=== PATIENT | male | born 1940 | race Caucasian/White ===

== ENCOUNTER 2019-11-04 14:04 | Inpatient (IN) | payer OTHER ==
--- NOTE | 2019-11-04 14:16 | PDOC ---
Rapid Medical Evaluation Time Seen by Provider: 11/04/19 14:13 Medical Evaluation: Allergies Allergy/AdvReac Type Severity Reaction Status Date / Time No Known Allergies Allergy Verified 08/27/14 01:11 11/04/19 14:14 I have performed a brief in-person evaluation of this patient. The patient presents with a chief complaint of: Fatigue w/ poor appetite, weakness w/ sob. No CP, cough, fever. H/o CABG x 4, hip repair, HTN, HLD. No known covid. Currently on valtrex and zovirax for facial shingles and states m eds make him tired PMD: Jose Araujo, referred pt to ER Pertinent physical exam findings:well jose roberto, tachy to 110 and pulse ox 93% I have ordered the following:ekg/cxr.labs The patient will proceed to the ED for further evaluation. Discharge Disposition - Diagnosis Fatigue Qualifiers: Fatigue type: unspecified Qualified Code(s): R53.83 - Other fatigue - Referrals - Patient Instructions - Post Discharge Activity
--- NOTE | 2019-11-04 15:06 | PDOC ---
Documentation entered by Brinda Salomon SCRIBE, acting as scribe for Doris Hall MD. Doris Hall MD: This documentation has been prepared by the Aime lorenzana Nirvannie, SCRIBE, under my direction and personally reviewed by me in its entirety. I confirm that the documentation accurately reflects all work, treatment, procedures, and medical decision making performed by me. Attending Attestation - Resident Resident Name: Venice Heller - ED Attending Attestation I have performed the following: I have examined & evaluated the patient, The case was reviewed & discussed with the resident, I agree w/resident's findings & plan, Exceptions are as noted - HPI HPI: 11/04/19 14:59 79YOM with h/o HTN, HLD, DM, BPH, hip replacement in 05/2019, who p/w hypotension and hypoxia and b/l lung crackles noted in his oupatient clinic today while Dr. Eduardo was seeing him in f/u for his PCP Jose Araujo, with sxs of fatigue and SOB. He was recently diagnosed with right V1 distribution shingles and has been taking Valtrex. He denies any leg swelling, f/c/n/v/d/c, n/t/w focally. - Physicial Exam PE: 11/04/19 15:36 GENERAL: pleasant elderly male accompanied by family member, well-appearing, A/Ox4, no distress, answers questions appropriately HEENT: PERRLA, EOMI, moist mucous membranes NECK/BACK: no midline ttp, no spinal step-off or deformity, no hematoma, full ROM, neck supple CARDIOVASCULAR: regular rate/rhythm, no MGR, strong peripheral pulses, capillary refill <2 seconds, extremities wwp, no edema LUNGS/RESPIRATORY: no respiratory distress, not on supplemental O2 at the time of my exam, mild bibasilar crackles GI/ABDOMEN: symmetric [id number], normoactive BS, soft, no ttp, no midline pulsatile masses : no CVA tenderness MSK/EXTREMITIES: no muscle atrophy, no acute deformity SKIN: warm and dry, no pallor, no jaundice, no rash, no pathologic-appearing bruising, no skin breakdown, no cuts, no lesions NEUROLOGICAL: GCS 15, CN II-XII grossly intact, 5/5 strength proximally and distally, no facial droop - Medical Decision Making 11/04/19 15:37 79YOM fatigue, and hypoxia and hypotension. Initial Vital Signs Temp Pulse Resp BP Pulse Ox 97.6 F 110 H 18 102/65 93 L 11/04/19 14:16 11/04/19 14:16 11/04/19 14:16 11/04/19 14:16 11/04/19 14:16 DDX IBNLT: likely COVID-19. Superimposed bacterial PNA considered as well. Possible COPD/asthma/CHF exacerbation. Less likely influenza, bronchitis, other viral URI, laryngitis, tracheitis, etc. Unlikely but possible contribution from shingles but the rash does seem to be resolving well. There is concern for possibility of PE given the patient's persistent hypoxia. W/U ordered: Labs as noted below, COVID-19 swab, EKG, CXR, Chest CT PE protocol I have spoken with Dr. Eduardo who instructed the patient to come to the ED and will be admitting under her service for the patient's PCP Dr. Jose Araujo. Decision to Admit order has been placed. EKG: Reviewed; results as noted in ECG Review section. RAD/CHEST X-RAY PORTABLE* Chest: Shortness of breath. Single view of the chest has been submitted. There is a prominent mediastinum with sternal sutures and clips and some central congestive changes. A discrete infiltrate is not seen. The angles are sharp. Soft tissues are intact. There are degenerative spine and shoulder changes. Correlation recommended. Laboratory Tests 11/04/19 11/04/19 14:30 14:30 WBC 9.6 RBC 5.68 H Hgb 16.6 Hct 50.1 H D MCV 88.3 MCH 29.2 MCHC 33.1 RDW 15.3 Plt Count 185 MPV 8.1 Absolute Neuts (auto) 6.7 Neutrophils % 69.4 D Lymphocytes % 12.9 D Monocytes % 16.2 H Eosinophils % 1.0 D Basophils % 0.5 Nucleated RBC % 0 Sodium 134 L Potassium 4.4 Chloride 97 L Carbon Dioxide 22 Anion Gap 14 BUN 33.8 H Creatinine 1.3 Est GFR (CKD-EPI)AfAm 59.73 Est GFR (CKD-EPI)NonAf 51.53 Random Glucose 225 H Calcium 8.8 Total Bilirubin 1.1 H AST 18 ALT 26 Alkaline Phosphatase 41 L Creatine Kinase 57 Troponin I < 0.02 Total Protein 6.8 Albumin 3.2 L Patient pending chest CT PE protocol given continued SpO2 in the low 90s even on 4 LPM O2 via NC. New baseline hypoxia, hypotension, 2 weeks of sxs. The Pt is high-risk for home decompensation and is unsafe for discharge at this time. They require further hospital observation, workup, and treatment. Patient high risk for COVID-19 and this will be noted as such on admission orders and in pass- down. Heart Score/ECG Review #1 11/04/19 Wandering baseline artifact but appears with sinus rhythm, rate 100, normal axis, borderline grossly prolonged QTc and this is calculated at 477ms by EKG machine, no ischemic ST-T changes. Discharge - Discharge Information Problems reviewed: Yes Clinical Impression/Diagnosis: Hypoxia, SOB (shortness of breath) Fatigue Qualifiers: Fatigue type: unspecified Qualified Code(s): R53.83 - Other fatigue Shingles Qualifiers: Herpes zoster complications: without complications Qualified Code(s): B02.9 - Zoster without complications Condition: Guarded - Admission Yes - Follow up/Referral - Patient Discharge Instructions - Post Discharge Activity
--- NOTE | 2019-11-04 15:16 | PDOC ---
History of Present Illness - General Chief Complaint: Weakness Stated Complaint: HYPOTENSION Time Seen by Provider: 11/04/19 14:13 Past History - Medical History Allergies/Adverse Reactions: Allergies Allergy/AdvReac Type Severity Reaction Status Date / Time No Known Allergies Allergy Verified 11/04/19 14:20 Home Medications: Ambulatory Orders Acyclovir 5 gm TP DAILY 11/04/19 Alfuzosin HCl [Uroxatral] 10 mg PO DAILY 11/04/19 Aspirin [ASA -] 81 mg PO DAILY 11/04/19 Atorvastatin Ca [Lipitor] 40 mg PO HS 11/04/19 Empagliflozin [Jardiance] 10 mg PO DAILY 11/04/19 Ezetimibe [Zetia] 10 mg PO DAILY 11/04/19 Lidocaine 5% Patch [Lidoderm -] 1 patch TP DAILY 11/04/19 Metformin HCl [Glucophage] 500 mg PO BID 11/04/19 Metoprolol Succinate 50 mg PO DAILY 11/04/19 Pantoprazole Sodium [Protonix] 40 mg PO DAILY 11/04/19 Pregabalin [Lyrica -] 50 mg PO BID 11/04/19 Sildenafil Citrate [Viagra] 100 mg PO DAILY 11/04/19 Simvastatin 40 mg PO DAILY 11/04/19 Tamsulosin HCl 0.4 mg PO DAILY 11/04/19 Valacyclovir HCl [Valtrex] 1,000 mg PO BID 11/04/19 Vitamin E 400 unit PO DAILY 11/04/19 Furosemide [Lasix -] 20 mg PO DAILY #30 tablet 11/07/19 COPD: No Disorders: Yes (bph) HTN: Yes Kidney Stones: Yes - Immunization History Immunization Up to Date: Yes - Psycho-Social/Smoking History Smoking History: Never smoked Number of Cigarettes Smoked Daily: 0 Cigars Per Day: 0 - Substance Abuse Hx (Audit-C & DAST Scrn) In the last yr the pt used illegal drug/Rx for NonMed reason: No Score: Yes response is considered Positive: 0 Screen Result (Positive result requires Nsg. DAST-10): Negative *Physical Exam - Vital Signs Last Vital Signs Temp Pulse Resp BP Pulse Ox 97.6 F 110 H 18 102/65 93 L 11/04/19 14:16 11/04/19 14:16 11/04/19 14:16 11/04/19 14:16 11/04/19 14:16 ED Treatment Course - LABORATORY CBC & Chemistry Diagram: 11/06/19 07:05 11/06/19 07:05 Medical Decision Making - Medical Decision Making 11/04/19 15:16 HPI: 79yo M hx CAD s/p CABG x 4, hip repair (05/2019), HTN, HLD, pre-DM, obesity, and ascending aorta dilatation sent by PCP Dr Jose Araujo for 2 weeks of fatigue, and 2 days of SOB worse with exertion, worsening fatigue, and abdominal bloating. Pt went to PCP on Thursday - HTN med split in half due to newly-found hypotension and pt started on Valtrex (last does this AM, BID) for R forehead and R eyelid shingles. Denies hx lung problems, COPD, CHF, leg swelling, calf tenderness, sick contacts, cough, hx hypoxia (baseline 97% per pt), hx hypotension, F/C, N/V, headache, dizziness, chest pain, palpitations, numbness/tingling, focal weakness, D/C, hematuria, confusion, hx DVT/PE, hormone use, recent travel, recent surgery. Tested for COVID 1mo ago and negative. ROS: Constitutional: Positive for fatigue. Negative for chills, fever, diaphoresis. HENT: Positive for shingles to R forehead. Negative for sore throat, rhinorrhea, congestion. Eyes: Negative for visual disturbance. Respiratory: Positive for shortness of breath. Negative for cough, and wheezing. Cardiovascular: Positive for hypotension. Negative for palpitations, and leg swelling. Gastrointestinal: Positive for bloating. Negative for abdominal pain, blood in stool, constipation, diarrhea, nausea, and vomiting. Genitourinary: Negative for dysuria, flank pain, and hematuria. Musculoskeletal: Negative for myalgias, back pain, and neck pain. Skin: Positive for shingles to R forehead. Neurological: Negative for light-headedness, dizziness, vertigo, syncope, weakness, numbness and headaches. Psychiatric/Behavioral: Negative for behavioral problems and confusion. PE: Gen: Alert, NAD, comfortable-appearing, obese HEENT: PERRL, EOMI, MMM, NCAT. Faint crusted shingles on R forehead. No conjunctival pallor. Sclera are non-icteric. CV: Regular rate and rhythm. No murmurs, rubs, or gallops. PULM: No resp distress. CTAB, no wheezes, rales, or rhonchi. ABD: soft, protuberant, NT/ND, no rebound tenderness or guarding, no CVA tend erness. BACK: No TTP of c/t/l-spine. No step-offs or deformities. MSK: No bony deformities. 2+ pulses in all extremities. NEURO: AAOx3. PERRL. No gross CN deficits. Strength and sensation grossly intact throughout. EXTREMITIES: No cyanosis. No clubbing. No edema. No calf tenderness. PSYCH: Normal mood and thought pattern. SKIN: Warm and dry. Normal capillary refill. No rashes. No jaundice. MDM: 79yo M hx CAD s/p CABG x 4, hip repair (05/2019), HTN, HLD, pre-DM, obesity, and ascending aorta dilatation sent by PCP Dr Jose Araujo for 2 weeks of fatigue, and 2 days of SOB worse with exertion, worsening fatigue, hypotension, and abdominal bloating. Tachycardic 110, BP 102/65, O2 90% on RA, no respiratory distress, afebrile. Ddx: CHF, COVID, ACS/SC, arrhythmia, COPD, PNA, PE, UTI, anemia, thyroid pathology, metabolic derangement, infection -EKG -CXR -CBC,CMP,Coags,Cardiac profile,Ferritin,LDH,BNP -Consider CTPE [] workup -Dispo: pending workup and reassessment, likely admit 11/04/19 16:26 Labs reviewed. Notable for glucose 225. EKG reviewed: normal sinus rhythm, 100bpm, normal axis, OR interval 188ms, QTc 477ms, no TWIs, no ST elevations or depressions CXR reviewed: Prominent mediastinum with sternal sutures and clips and some central congestive changes. No discrete infiltrate. -CTA eval for PE and COVID CTA: no e/o PE. Bilateral pleural effusions and lower lobe atelectasis. Mild mediastinal lymphadenopathy. Admitted Discharge - Discharge Information Problems reviewed: Yes Clinical Impression/Diagnosis: Hypoxia, SOB (shortness of breath) Fatigue Qualifiers: Fatigue type: unspecified Qualified Code(s): R53.83 - Other fatigue Shingles Qualifiers: Herpes zoster complications: without complications Qualified Code(s): B02.9 - Zoster without complications Condition: Good Disposition: HOME - Admission Yes - Follow up/Referral - Patient Discharge Instructions - Post Discharge Activity
[2019-11-04 15:18] LABS: BASO % 0.5 % (0-2.0); HEMATOCRIT 50.1 % (35.4-49); HEMOGLOBIN 16.6 GM/dL (11.7-16.9); LYMPH % 12.9 % (8-40); MCH 29.2 pg (25.7-33.7); MCHC 33.1 g/dl (32.0-35.9); MEAN CELL VOLUME 88.3 fl (80-96); MEAN PLT VOLUME 8.1 fl (7.5-11.1); MONO % 16.2 % (3.8-10.2); NEUT % 69.4 % (42.8-82.8); PLATELET COUNT 185 K/MM3 (134-434); RBC 5.68 M/mm3 (4.00-5.60); RDW 15.3 % (11.9-15.9); WHITE BLOOD COUNT 9.6 K/mm3 (4.0-10.0)
[2019-11-04 15:44] LABS: ALBUMIN 3.2 g/dl (3.4-5.0); ALK PHOS 41 U/L (45-117); ANION GAP 14 MMOL/L (8-16); BILIRUBIN,TOTAL 1.1 mg/dL (0.2-1); BLOOD UREA NITROGEN 33.8 mg/dL (7-18); CALCIUM 8.8 mg/dL (8.5-10.1); CHLORIDE 97 mmol/L (98-107); CO2 22 mmol/L (21-32); CREATININE 1.3 mg/dL (0.55-1.3); GLUCOSE,RANDOM 225 mg/dL (74-106); POTASSIUM 4.4 mmol/L (3.5-5.1); SGOT/AST 18 U/L (15-37); SGPT/ALT 26 U/L (13-61); SODIUM 134 mmol/L (136-145); TOT PROT 6.8 g/dl (6.4-8.2)
[2019-11-04 16:54] LABS: PH,URINE 5.5 (5.0-8.0); URINE APPEARANCE CLEAR; URINE BILIRUBIN NEGATIVE (NEGATIVE); URINE COLOR YELLOW; URINE GLUCOSE (UA) 3+ (NEGATIVE); URINE KETONE 2+ (NEGATIVE); URINE LEUK ESTERASE NEGATIVE (NEGATIVE); URINE NITRITE NEGATIVE (NEGATIVE); URINE PROTEIN NEGATIVE (NEGATIVE)
[2019-11-04 17:22] LABS: INR 1.14 (0.83-1.09); PROTHROMBIN TIME (PATIENT) 13.5 SEC (9.7-13.0)
[2019-11-04 17:25] LABS: ACTIVATED PTT 25.2 SECONDS (25.2-36.5)
[2019-11-04 18:29] LABS: N-TERMINAL BNP 224.1 pg/ml (5-450)
[2019-11-04 18:42] LABS: LDH 255 U/L (87-246)
[2019-11-04 22:02] VITALS: BMI 33.0
[2019-11-05] MEDS: metFORMIN HCL 500 MG TABLET (FP) PO SCH ×2 (06:14→16:35)
--- NOTE | 2019-11-05 06:53 | CON.CARD ---
Consult Consult Specialty:: Cardiology - History of Present Illness History of Present Illness: 79YOM with h/o HTN, HLD, DM, BPH, hip replacement in 05/2019, who p/w hypotension and hypoxia and b/l lung crackles noted in his oupatient clinic today while Dr. Eduardo was seeing him in f/u for his PCP Jose Araujo, with sxs of fatigue and SOB. He was recently diagnosed with right V1 distribution shingles and has been taking Valtrex. He denies any leg swelling, f/c/n/v/d/c, n/t/w focally. - History Source History Provided By: Patient, Medical Record - Past Medical History Cardio/Vascular: Yes: HTN, Hyperlipdemia - Alcohol/Substance Use Hx Alcohol Use: No - Smoking History Smoking history: Former smoker Have you smoked in the past 12 months: No Aproximately how many cigarettes per day: 0 If you are a former smoker, when did you quit?: Home Medications - Allergies Allergies/Adverse Reactions: Allergies Allergy/AdvReac Type Severity Reaction Status Date / Time No Known Allergies Allergy Verified 11/04/19 14:20 - Home Medications Home Medications: Ambulatory Orders Acyclovir 5 gm TP DAILY 11/04/19 Alfuzosin HCl [Uroxatral] 10 mg PO DAILY 11/04/19 Aspirin [ASA -] 81 mg PO DAILY 11/04/19 Atorvastatin Ca [Lipitor] 40 mg PO HS 11/04/19 Empagliflozin [Jardiance] 10 mg PO DAILY 11/04/19 Ezetimibe [Zetia] 10 mg PO DAILY 11/04/19 Lidocaine 5% Patch [Lidoderm Patch -] 1 patch TP DAILY 11/04/19 Losartan/Hydrochlorothiazide [Losartan-Hctz 50-12.5 mg Tab] 1 each PO DAILY 11/04/19 Metformin HCl [Glucophage] 500 mg PO BID 11/04/19 Metoprolol Succinate 50 mg PO DAILY 11/04/19 Pantoprazole Sodium [Protonix] 40 mg PO DAILY 11/04/19 Pregabalin [Lyrica -] 50 mg PO BID 11/04/19 Sildenafil Citrate [Viagra] 100 mg PO DAILY 11/04/19 Simvastatin 40 mg PO DAILY 11/04/19 Tamsulosin HCl 0.4 mg PO DAILY 11/04/19 Valacyclovir HCl [Valtrex] 1,000 mg PO BID 11/04/19 Vitamin E 400 unit PO DAILY 11/04/19 Review of Systems - Review of Systems Constitutional: reports: No Symptoms Eyes: reports: No Symptoms HENT: reports: No Symptoms Neck: reports: No Symptoms Cardiovascular: reports: No Symptoms Respiratory: reports: SOB, SOB on Exertion Gastrointestinal: reports: No Symptoms Genitourinary: reports: No Symptoms Breasts: reports: No Symptoms Reported Musculoskeletal: reports: No Symptoms Integumentary: reports: No Symptoms Neurological: reports: No Symptoms Endocrine: reports: No Symptoms Hematology/Lymphatic: reports: No Symptoms Psychiatric: reports: No Symptoms Vital Signs: Vital Signs Temperature 98.1 F 11/05/19 05:00 Pulse Rate 103 H 11/05/19 05:00 Respiratory Rate 11/05/19 05:00 Blood Pressure 151/82 11/05/19 05:00 O2 Sat by Pulse Oximetry (%) 94 L 11/05/19 05:00 Constitutional: Yes: Well Nourished, No Distress, Calm Eyes: Yes: WNL, Conjunctiva Clear, EOM Intact HENT: Yes: WNL, Atraumatic, Normocephalic Neck: Yes: WNL, Supple, Trachea Midline Respiratory: Yes: Diminished Gastrointestinal: Yes: WNL, Normal Bowel Sounds Renal/: Yes: WNL Cardiovascular: Yes: WNL, Regular Rate and Rhythm Musculoskeletal: Yes: WNL Extremities: Yes: WNL Integumentary: Yes: WNL Neurological: Yes: WNL, Alert, Oriented ...Motor Strength: WNL Psychiatric: Yes: WNL, Alert, Oriented - Other Data Labs, Other Data: CBC, BMP 11/04/19 14:30 11/04/19 14:30 INR, PTT INR 1.14 (0.83-1.09) H 11/04/19 16:20 Troponin, BNP 11/04/19 11/04/19 14:30 23:40 Troponin I < 0.02 < 0.02 B-Natriuretic Peptide 224.1 Troponin, BNP 11/04/19 11/04/19 14:30 23:40 Troponin I < 0.02 < 0.02 B-Natriuretic Peptide 224.1 Imaging - Results Chest X-ray: Image Reviewed (smal b pleural effusions) EKG: Image Reviewed (s tachy o/w WNL) Problem List - Problems (1) Fatigue Code(s): R53.83 - OTHER FATIGUE Qualifiers: Fatigue type: unspecified Qualified Code(s): R53.83 - Other fatigue (2) Hypoxia Code(s): R09.02 - HYPOXEMIA (3) SOB (shortness of breath) Code(s): R06.02 - SHORTNESS OF BREATH (4) Shingles Code(s): B02.9 - ZOSTER WITHOUT COMPLICATIONS Qualifiers: Herpes zoster complications: without complications Qualified Code(s): B02.9 - Zoster without complications (5) Epigastric abdominal pain Code(s): R10.13 - EPIGASTRIC PAIN Assessment/Plan HTN, HLD, DM, BPH, hip replacement in 05/2019, who p/w hypotension and hypoxia and b/l lung crackles BNP nl CTA neg for PE Plan; agree with trial of Lasix pulmonary rx dvt plx echo telemetry Ischemic w/u if not done recently
[2019-11-05] MEDS: PANTOPRAZOLE 40 MG TABLET PO SCH (06:58)
[2019-11-05] MEDS: INSULIN SLIDING SCALE (NOVOLOG) 1 VIAL SQ SCH ×4 (06:58→22:00)
[2019-11-05] MEDS ORDERED: valACYclovir HCL 500 MG TABLET (FP) ONE ×2 (09:21→21:51)
[2019-11-05] MEDS: ASPIRIN 81 MG CHEWABLE TABLETS PO SCH (09:36)
[2019-11-05] MEDS: TAMSULOSIN HCL 0.4 MG CAP PO SCH (09:36)
[2019-11-05] MEDS: valACYclovir HCL 1000 MG TABLET PO SCH ×2 (09:37→22:01)
[2019-11-05] MEDS: HEPARIN NA (PORCINE) 5,000 UNITS/ML 1ML VIAL SQ SCH ×2 (09:38→22:00)
[2019-11-05] MEDS: EZETIMIBE 10 MG TABLET (FP) PO SCH (09:38)
[2019-11-05] MEDS ORDERED: LOSARTAN 50MG/HCTZ 12.5MG 1 TAB (FP) PO SCH (10:00)
[2019-11-05] MEDS ORDERED: PATIENT'S OWN MEDICATION (NON-FORMULARY) (Simvastatin [Simvastatin] 40 MG) PO SCH (10:00)
--- NOTE | 2019-11-05 13:20 | HP ---
Admitting History and Physical - Admission History of Present Illness: 79yo male with h/o HTN, DM, hyperlipidemia, who was sent from his PMD for generalized weakness and hypoxia. Pt states he started feeling weak and fatigued 4 days ago when he started taking valacyclovir for his scalp shingles. However pt also complains of SOB and found to be hypoxic in his PMD office and sent to ER. t. Reports a chronic cough usually productive of green sputum but yellow today. No fevers, chills or sweats. CTA chest done which did not show evidence of PE but with small bilateral effusions. Denies history of asthma or COPD. He is a remote smoker. - Past Medical History Cardiovascular: Yes: HTN, Hyperlipdemia Endocrine: Yes: Diabetes Mellitus - Smoking History Smoking history: Former smoker Have you smoked in the past 12 months: No Aproximately how many cigarettes per day: 0 If you are a former smoker, when did you quit?: - Alcohol/Substance Use Hx Alcohol Use: No Home Medications - Allergies Allergies/Adverse Reactions: Allergies Allergy/AdvReac Type Severity Reaction Status Date / Time No Known Allergies Allergy Verified 11/04/19 14:20 - Home Medications Home Medications: Ambulatory Orders Acyclovir 5 gm TP DAILY 11/04/19 Alfuzosin HCl [Uroxatral] 10 mg PO DAILY 11/04/19 Aspirin [ASA -] 81 mg PO DAILY 11/04/19 Atorvastatin Ca [Lipitor] 40 mg PO HS 11/04/19 Empagliflozin [Jardiance] 10 mg PO DAILY 11/04/19 Ezetimibe [Zetia] 10 mg PO DAILY 11/04/19 Lidocaine 5% Patch [Lidoderm -] 1 patch TP DAILY 11/04/19 Metformin HCl [Glucophage] 500 mg PO BID 11/04/19 Metoprolol Succinate 50 mg PO DAILY 11/04/19 Pantoprazole Sodium [Protonix] 40 mg PO DAILY 11/04/19 Pregabalin [Lyrica -] 50 mg PO BID 11/04/19 Sildenafil Citrate [Viagra] 100 mg PO DAILY 11/04/19 Simvastatin 40 mg PO DAILY 11/04/19 Tamsulosin HCl 0.4 mg PO DAILY 11/04/19 Valacyclovir HCl [Valtrex] 1,000 mg PO BID 11/04/19 Vitamin E 400 unit PO DAILY 11/04/19 Furosemide [Lasix -] 20 mg PO DAILY #30 tablet 11/07/19 Family Medical History Family History: Unremarkable Review of Systems - Review of Systems Constitutional: reports: No Symptoms Eyes: reports: No Symptoms HENT: reports: No Symptoms Neck: reports: No Symptoms Cardiovascular: reports: Shortness of Breath Respiratory: reports: SOB Gastrointestinal: reports: No Symptoms Genitourinary: reports: No Symptoms Physical Examination Vital Signs: Vital Signs Temperature 98.1 F 11/05/19 05:00 Pulse Rate 109 H 11/05/19 09:00 Respiratory Rate 11/05/19 09:00 Blood Pressure 125/75 11/05/19 09:00 O2 Sat by Pulse Oximetry (%) 92 L 11/05/19 09:00 Constitutional: Yes: Well Nourished Eyes: Yes: WNL HENT: Yes: WNL, Atraumatic Neck: Yes: WNL, Supple Cardiovascular: Yes: WNL, Regular Rate and Rhythm Respiratory: Yes: Diminished Gastrointestinal: Yes: WNL, Normal Bowel Sounds, Soft Edema: No Neurological: Yes: WNL, Alert, Oriented ...Motor Strength: WNL Labs: CBC, BMP 11/04/19 14:30 11/04/19 14:30 Problem List - Problems (1) Acute respiratory failure with hypoxia Assessment/Plan: ?Due to acute CHF vs pulmonary cause(pleural effusion) Pt remains hypoxic on O2 NC 5L Cont IV lasix Pulmonary/Cardio consults Code(s): J96.01 - ACUTE RESPIRATORY FAILURE WITH HYPOXIA (2) HTN (hypertension) Assessment/Plan: BP fluctuating Cont metoprolol/asa Code(s): I10 - ESSENTIAL (PRIMARY) HYPERTENSION (3) HLD (hyperlipidemia) Assessment/Plan: Cont lipitor/zetia Code(s): E78.5 - HYPERLIPIDEMIA, UNSPECIFIED (4) Shingles Assessment/Plan: Cont valtrex Code(s): B02.9 - ZOSTER WITHOUT COMPLICATIONS Qualifiers: Herpes zoster complications: without complications Qualified Code(s): B02.9 - Zoster without complications
--- NOTE | 2019-11-05 13:49 | CON.PULM ---
Consult Consult Specialty:: PULMONARY Referred by:: Dr Eduardo Reason for Consultation:: hypoxia - History of Present Illness Chief Complaint: generalized weakness History of Present Illness: 79yo male with h/o HTN, DM, hyperlipidemia, who was sent from his PMD for generalized weakness and hypoxia. Pt states he started feeling weak and fatigued 4 days ago when he started taking valacyclovir for his scalp shingles. Does report some dyspnea on exertion but without chest pain or discomfort. Reports a chronic cough usually productive of green sputum but yellow today. No fevers, chills or sweats. No sick contacts or recent travel. CTA chest done which did not show evidence of PE but with small bilateral effusions. Denies history of asthma or COPD. He is a remote smoker. - History Source History Provided By: Patient, Medical Record Limitations to Obtaining History: No Limitations - Past Medical History Cardio/Vascular: Yes: HTN, Hyperlipdemia Endocrine: Yes: Diabetes Mellitus - Alcohol/Substance Use Hx Alcohol Use: No - Smoking History Smoking history: Former smoker Have you smoked in the past 12 months: No Aproximately how many cigarettes per day: 0 If you are a former smoker, when did you quit?: Home Medications - Allergies Allergies/Adverse Reactions: Allergies Allergy/AdvReac Type Severity Reaction Status Date / Time No Known Allergies Allergy Verified 11/04/19 14:20 - Home Medications Home Medications: Ambulatory Orders Acyclovir 5 gm TP DAILY 11/04/19 Alfuzosin HCl [Uroxatral] 10 mg PO DAILY 11/04/19 Aspirin [ASA -] 81 mg PO DAILY 11/04/19 Atorvastatin Ca [Lipitor] 40 mg PO HS 11/04/19 Empagliflozin [Jardiance] 10 mg PO DAILY 11/04/19 Ezetimibe [Zetia] 10 mg PO DAILY 11/04/19 Lidocaine 5% Patch [Lidoderm Patch -] 1 patch TP DAILY 11/04/19 Losartan/Hydrochlorothiazide [Losartan-Hctz 50-12.5 mg Tab] 1 each PO DAILY 11/04/19 Metformin HCl [Glucophage] 500 mg PO BID 11/04/19 Metoprolol Succinate 50 mg PO DAILY 11/04/19 Pantoprazole Sodium [Protonix] 40 mg PO DAILY 11/04/19 Pregabalin [Lyrica -] 50 mg PO BID 11/04/19 Sildenafil Citrate [Viagra] 100 mg PO DAILY 11/04/19 Simvastatin 40 mg PO DAILY 11/04/19 Tamsulosin HCl 0.4 mg PO DAILY 11/04/19 Valacyclovir HCl [Valtrex] 1,000 mg PO BID 11/04/19 Vitamin E 400 unit PO DAILY 11/04/19 Review of Systems - Review of Systems Constitutional: reports: Weakness. denies: Chills, Fever Eyes: denies: Recent Change in Vision HENT: denies: Nasal Congestion, Throat Pain Neck: denies: Stiffness, Tenderness Cardiovascular: reports: Shortness of Breath. denies: Chest Pain, Edema Respiratory: reports: Cough, SOB on Exertion. denies: Hemoptysis, Wheezing Gastrointestinal: denies: Abdominal Pain, Nausea, Vomiting Genitourinary: denies: Dysuria, Hematuria Neurological: denies: Dizziness, Headache Endocrine: denies: Unexplained Weight Loss Physical Exam Vital Sings: Vital Signs Temperature 97.9 F 11/05/19 09:00 Pulse Rate 109 H 11/05/19 09:00 Respiratory Rate 11/05/19 09:00 Blood Pressure 125/75 11/05/19 09:00 O2 Sat by Pulse Oximetry (%) 92 L 11/05/19 09:00 Constitutional: Yes: No Distress, Calm Eyes: Yes: Conjunctiva Clear, EOM Intact HENT: Yes: Atraumatic, Normocephalic Neck: Yes: Supple, Trachea Midline Cardiovascular: Yes: Regular Rate and Rhythm Respiratory: Yes: Rales ...Clubbing: No Gastrointestinal: Yes: Normal Bowel Sounds, Soft Edema: No Neurological: Yes: Alert, Oriented Labs: CBC, BMP 11/04/19 14:30 11/04/19 14:30 Imaging - Results Chest X-ray: Report Reviewed, Image Reviewed Cat Scan: Report Reviewed, Image Reviewed (no PE, small pleural effusions and bibasilar atelectasis) Assessment/Plan Suspect Acute Diastolic Heart Failure Pleural Effusions Atelectasis Hypoxia from above HTN DM Hyperlipidemia - trial of lasix - monitor urine output, creatinine - echocardiogram - O2 to keep SpO2 >90% - DVT prophylaxis Thank you for this consult Usman Valles MD
[2019-11-05 13:55] LABS: BASO % 0.7 % (0-2.0); HEMATOCRIT 49.2 % (35.4-49); HEMOGLOBIN 16.6 GM/dL (11.7-16.9); LYMPH % 14.5 % (8-40); MCH 29.8 pg (25.7-33.7); MCHC 33.8 g/dl (32.0-35.9); MONO % 13.9 % (3.8-10.2); NEUT % 66.9 % (42.8-82.8); PLATELET COUNT 222 K/MM3 (134-434); RDW 15.2 % (11.9-15.9); WHITE BLOOD COUNT 8.7 K/mm3 (4.0-10.0)
[2019-11-05] MEDS ORDERED: FUROSEMIDE 40 MG/4 ML INJECTABLE VIAL IVPUSH ONE (14:00)
[2019-11-05 14:35] LABS: ALBUMIN 3.1 g/dl (3.4-5.0); ALK PHOS 48 U/L (45-117); ANION GAP 9 MMOL/L (8-16); BLOOD UREA NITROGEN 29.1 mg/dL (7-18); CHLORIDE 97 mmol/L (98-107); CO2 27 mmol/L (21-32); CREATININE 0.9 mg/dL (0.55-1.3); GLUCOSE,RANDOM 236 mg/dL (74-106); POTASSIUM 3.9 mmol/L (3.5-5.1); SGOT/AST 25 U/L (15-37); SODIUM 133 mmol/L (136-145); TOT PROT 6.9 g/dl (6.4-8.2)
[2019-11-05 14:46] LABS: BILIRUBIN,TOTAL 0.8 mg/dL (0.2-1); SGPT/ALT 35 U/L (13-61)
--- NOTE | 2019-11-05 15:01 | PN ---
Progress Note, Physician History of Present Illness: 79YOM with h/o HTN, HLD, DM, BPH, hip replacement in 05/2019, who p/w hypotension and hypoxia and b/l lung crackles noted in his oupatient clinic today while Dr. Eduardo was seeing him in f/u for his PCP Jose Araujo, with sxs of fatigue and SOB. He was recently diagnosed with right V1 distribution shingles and has been taking Valtrex. He denies any leg swelling, f/c/n/v/d/c, n/t/w focally. - Current Medication List Current Medications: Active Medications Aspirin (Asa -) 81 mg PO DAILY [facility] Last Admin: 11/05/19 09:36 Dose: 81 mg Documented by: Atorvastatin Calcium (Lipitor -) 40 mg PO [facility] Atorvastatin Calcium (Lipitor -) 20 mg PO HS [facility] Ezetimibe (Zetia -) 10 mg PO DAILY [facility] Last Admin: 11/05/19 09:38 Dose: 10 mg Documented by: Heparin Sodium (Porcine) (Heparin -) 5,000 unit SQ BID [facility] Last Admin: 11/05/19 09:38 Dose: 5,000 unit Documented by: Insulin Aspart (Novolog Vial Sliding Scale -) 1 vial SQ [facility]; Protocol Last Admin: 11/05/19 12:15 Dose: 6 units Documented by: Metformin HCl (Glucophage -) 500 mg PO BIDAC [facility] Last Admin: 11/05/19 06:14 Dose: Not Given Documented by: Metoprolol Succinate (Toprol Xl -) 50 mg PO DAILY [facility] Last Admin: 11/05/19 09:37 Dose: 50 mg Documented by: Pantoprazole Sodium (Protonix -) 40 mg PO ACBK [facility] Last Admin: 11/05/19 06:58 Dose: 40 mg Documented by: Tamsulosin HCl (Flomax -) 0.4 mg PO DAILY@0830 [facility] Last Admin: 11/05/19 09:36 Dose: 0.4 mg Documented by: Valacyclovir HCl (Valtrex -) 1,000 mg PO BID [facility] Last Admin: 11/05/19 09:37 Dose: 1,000 mg Documented by: - Objective Vital Signs: Vital Signs Temperature 98.4 F 11/05/19 13:00 Pulse Rate 100 H 11/05/19 13:00 Respiratory Rate 11/05/19 13:00 Blood Pressure 134/86 11/05/19 13:00 O2 Sat by Pulse Oximetry (%) 93 L 11/05/19 13:00 Eyes: Yes: WNL, Conjunctiva Clear, EOM Intact HENT: Yes: WNL, Atraumatic, Normocephalic Neck: Yes: WNL, Supple, Trachea Midline Cardiovascular: Yes: WNL, Regular Rate and Rhythm Respiratory: Yes: Diminished Gastrointestinal: Yes: WNL, Normal Bowel Sounds Genitourinary: Yes: WNL Musculoskeletal: Yes: WNL Extremities: Yes: WNL Edema: No Integumentary: Yes: WNL Neurological: Yes: WNL, Alert, Oriented ...Motor Strength: WNL Psychiatric: Yes: WNL Labs: CBC, BMP 11/05/19 12:55 11/05/19 12:55 INR, PTT INR 1.14 (0.83-1.09) H 11/04/19 16:20 Problem List - Problems (1) Fatigue Code(s): R53.83 - OTHER FATIGUE Qualifiers: Fatigue type: unspecified Qualified Code(s): R53.83 - Other fatigue (2) Hypoxia Code(s): R09.02 - HYPOXEMIA (3) SOB (shortness of breath) Code(s): R06.02 - SHORTNESS OF BREATH (4) Shingles Code(s): B02.9 - ZOSTER WITHOUT COMPLICATIONS Qualifiers: Herpes zoster complications: without complications Qualified Code(s): B02.9 - Zoster without complications (5) Epigastric abdominal pain Code(s): R10.13 - EPIGASTRIC PAIN Assessment/Plan HTN, HLD, DM, BPH, hip replacement in 05/2019, who p/w hypotension and hypoxia and b/l lung crackles BNP nl CTA neg for PE Plan; agree with trial of Lasix pulmonary rx dvt plx echo telemetry Ischemic w/u if not done recently
[2019-11-05] MEDS: ATORVASTATIN CA 20 MG TABLET (FP) PO SCH ×2 (22:00→22:57)
[2019-11-05] MEDS: ATORVASTATIN CA 40 MG TABLET (FP) PO SCH (22:00)
[2019-11-06] MEDS ORDERED: ACETAMINOPHEN 325 MG TABLET (FP) ONE (05:59)
[2019-11-06] MEDS ORDERED: ACETAMINOPHEN 325 MG TABLET (FP) PO PRN (06:05)
[2019-11-06] MEDS: PANTOPRAZOLE 40 MG TABLET PO SCH (06:57)
[2019-11-06] MEDS: metFORMIN HCL 500 MG TABLET (FP) PO SCH ×2 (06:57→16:43)
[2019-11-06] MEDS: INSULIN SLIDING SCALE (NOVOLOG) 1 VIAL SQ SCH ×4 (06:57→21:52)
[2019-11-06 07:48] LABS: BASO % 0.8 % (0-2.0); EOS % 7.5 % (0-4.5); HEMOGLOBIN 15.5 GM/dL (11.7-16.9); LYMPH % 18.5 % (8-40); MCH 29.1 pg (25.7-33.7); MEAN PLT VOLUME 8.1 fl (7.5-11.1); MONO % 17.8 % (3.8-10.2); NEUT % 55.4 % (42.8-82.8); PLATELET COUNT 202 K/MM3 (134-434); RBC 5.34 M/mm3 (4.00-5.60); RDW 15.4 % (11.9-15.9); WHITE BLOOD COUNT 7.9 K/mm3 (4.0-10.0)
[2019-11-06 08:05] LABS: ALBUMIN 2.9 g/dl (3.4-5.0); ALK PHOS 39 U/L (45-117); ANION GAP 7 MMOL/L (8-16); BILIRUBIN,TOTAL 0.8 mg/dL (0.2-1); BLOOD UREA NITROGEN 30.8 mg/dL (7-18); CALCIUM 8.8 mg/dL (8.5-10.1); CHLORIDE 100 mmol/L (98-107); CO2 30 mmol/L (21-32); CREATININE 0.8 mg/dL (0.55-1.3); GLUCOSE,RANDOM 165 mg/dL (74-106); POTASSIUM 3.8 mmol/L (3.5-5.1); SGOT/AST 20 U/L (15-37); SGPT/ALT 31 U/L (13-61); SODIUM 136 mmol/L (136-145); TOT PROT 6.3 g/dl (6.4-8.2)
[2019-11-06] MEDS ORDERED: valACYclovir HCL 500 MG TABLET (FP) ONE ×2 (08:59→21:42)
[2019-11-06] MEDS: TAMSULOSIN HCL 0.4 MG CAP PO SCH (09:26)
[2019-11-06] MEDS: ASPIRIN 81 MG CHEWABLE TABLETS PO SCH (09:26)
[2019-11-06] MEDS: valACYclovir HCL 1000 MG TABLET PO SCH ×2 (09:27→21:52)
[2019-11-06] MEDS: EZETIMIBE 10 MG TABLET (FP) PO SCH (09:27)
[2019-11-06] MEDS: HEPARIN NA (PORCINE) 5,000 UNITS/ML 1ML VIAL SQ SCH ×2 (09:33→21:52)
--- NOTE | 2019-11-06 12:55 | PN ---
Progress Note (short form) - Note Progress Note: PULMONARY Feels better. Less short of breath. Still hypoxic on room air to 89-90s. Vital Signs Period Temp Pulse Resp BP Sys/[place]y Pulse Ox Last 24 Hr 97.7 F-99.2 F 86-102 20-20 123-143/77-89 92-94 Gen: NAD at rest Heart: RRR Lung: basilar rales Abd: soft, nontender Ext: no edema CBC, BMP 11/06/19 07:05 11/06/19 07:05 Active Medications Acetaminophen (Tylenol -) 650 mg PO Q6H PRN PRN Reason: HEADACHE Aspirin (Asa -) 81 mg PO DAILY [facility] Last Admin: 11/06/19 09:26 Dose: 81 mg Documented by: Atorvastatin Calcium (Lipitor -) 40 mg PO HS [facility] Last Admin: 11/05/19 22:00 Dose: 40 mg Documented by: Ezetimibe (Zetia -) 10 mg PO DAILY [facility] Last Admin: 11/06/19 09:27 Dose: 10 mg Documented by: Heparin Sodium (Porcine) (Heparin -) 5,000 unit SQ BID [facility] Last Admin: 11/06/19 09:33 Dose: 5,000 unit Documented by: Insulin Aspart (Novolog Vial Sliding Scale -) 1 vial SQ [facility]; Protocol Last Admin: 11/06/19 12:09 Dose: 4 units Documented by: Metformin HCl (Glucophage -) 500 mg PO BIDAC [facility] Last Admin: 11/06/19 06:57 Dose: Not Given Documented by: Metoprolol Succinate (Toprol Xl -) 50 mg PO DAILY [facility] Last Admin: 11/06/19 09:27 Dose: 50 mg Documented by: Pantoprazole Sodium (Protonix -) 40 mg PO ACBK [facility] Last Admin: 11/06/19 06:57 Dose: 40 mg Documented by: Tamsulosin HCl (Flomax -) 0.4 mg PO DAILY@0830 [facility] Last Admin: 11/06/19 09:26 Dose: 0.4 mg Documented by: Valacyclovir HCl (Valtrex -) 1,000 mg PO BID [facility] Last Admin: 11/06/19 09:27 Dose: 1,000 mg Documented by: A/P Suspect Acute Diastolic Heart Failure Pleural Effusions Atelectasis Hypoxia from above HTN DM Hyperlipidemia - will give another dose of lasix - monitor urine output, creatinine - daily weights - echocardiogram - O2 to keep SpO2 >90% - DVT prophylaxis
[2019-11-06] MEDS ORDERED: FUROSEMIDE 40 MG/4 ML INJECTABLE VIAL IVPUSH ONE (12:56)
--- NOTE | 2019-11-06 13:28 | PN ---
Progress Note, Physician History of Present Illness: 79YOM with h/o HTN, HLD, DM, BPH, hip replacement in 05/2019, who p/w hypotension and hypoxia and b/l lung crackles noted in his oupatient clinic today while Dr. Eduardo was seeing him in f/u for his PCP Jose Araujo, with sxs of fatigue and SOB. He was recently diagnosed with right V1 distribution shingles and has been taking Valtrex. He denies any leg swelling, f/c/n/v/d/c, n/t/w focally. - Current Medication List Current Medications: Active Medications Acetaminophen (Tylenol -) 650 mg PO Q6H PRN PRN Reason: HEADACHE Aspirin (Asa -) 81 mg PO DAILY [facility] Last Admin: 11/06/19 09:26 Dose: 81 mg Documented by: Atorvastatin Calcium (Lipitor -) 40 mg PO HS [facility] Last Admin: 11/05/19 22:00 Dose: 40 mg Documented by: Ezetimibe (Zetia -) 10 mg PO DAILY [facility] Last Admin: 11/06/19 09:27 Dose: 10 mg Documented by: Heparin Sodium (Porcine) (Heparin -) 5,000 unit SQ BID [facility] Last Admin: 11/06/19 09:33 Dose: 5,000 unit Documented by: Insulin Aspart (Novolog Vial Sliding Scale -) 1 vial SQ [facility]; Protocol Last Admin: 11/06/19 12:09 Dose: 4 units Documented by: Metformin HCl (Glucophage -) 500 mg PO BIDAC [facility] Last Admin: 11/06/19 06:57 Dose: Not Given Documented by: Metoprolol Succinate (Toprol Xl -) 50 mg PO DAILY [facility] Last Admin: 11/06/19 09:27 Dose: 50 mg Documented by: Pantoprazole Sodium (Protonix -) 40 mg PO ACBK [facility] Last Admin: 11/06/19 06:57 Dose: 40 mg Documented by: Tamsulosin HCl (Flomax -) 0.4 mg PO DAILY@0830 [facility] Last Admin: 11/06/19 09:26 Dose: 0.4 mg Documented by: Valacyclovir HCl (Valtrex -) 1,000 mg PO BID [facility] Last Admin: 11/06/19 09:27 Dose: 1,000 mg Documented by: - Objective Vital Signs: Vital Signs Temperature 97.7 F 11/06/19 10:00 Pulse Rate 99 H 11/06/19 10:00 Respiratory Rate 20 11/06/19 10:00 Blood Pressure 143/82 11/06/19 10:00 O2 Sat by Pulse Oximetry (%) 92 L 11/06/19 10:00 Eyes: Yes: WNL, Conjunctiva Clear, EOM Intact HENT: Yes: WNL, Atraumatic, Normocephalic Neck: Yes: WNL, Supple, Trachea Midline Cardiovascular: Yes: WNL, Regular Rate and Rhythm Respiratory: Yes: WNL, Regular, CTA Bilaterally Gastrointestinal: Yes: WNL, Normal Bowel Sounds Genitourinary: Yes: WNL Musculoskeletal: Yes: WNL Extremities: Yes: WNL Edema: No Integumentary: Yes: WNL Neurological: Yes: WNL, Alert, Oriented ...Motor Strength: WNL Psychiatric: Yes: WNL Labs: CBC, BMP 11/06/19 07:05 11/06/19 07:05 INR, PTT INR 1.14 (0.83-1.09) H 11/04/19 16:20 Problem List - Problems (1) Fatigue Code(s): R53.83 - OTHER FATIGUE Qualifiers: Fatigue type: unspecified Qualified Code(s): R53.83 - Other fatigue (2) Hypoxia Code(s): R09.02 - HYPOXEMIA (3) SOB (shortness of breath) Code(s): R06.02 - SHORTNESS OF BREATH (4) Shingles Code(s): B02.9 - ZOSTER WITHOUT COMPLICATIONS Qualifiers: Herpes zoster complications: without complications Qualified Code(s): B02.9 - Zoster without complications (5) Epigastric abdominal pain Code(s): R10.13 - EPIGASTRIC PAIN Assessment/Plan HTN, HLD, DM, BPH, hip replacement in 05/2019, who p/w hypotension and hypoxia and b/l lung crackles BNP nl CTA neg for PE Plan; agree with trial of Lasix pulmonary rx dvt plx echo telemetry Ischemic w/u if not done recently
[2019-11-06] MEDS: FUROSEMIDE 20 MG TABLET (FP) PO SCH (15:55)
[2019-11-06] MEDS: ATORVASTATIN CA 40 MG TABLET (FP) PO SCH (21:52)
--- NOTE | 2019-11-06 22:18 | PN ---
Progress Note, Physician History of Present Illness: O2 sats still at 92-93 on 5L NC O2 - Current Medication List Current Medications: Active Medications Acetaminophen (Tylenol -) 650 mg PO Q6H PRN PRN Reason: HEADACHE Aspirin (Asa -) 81 mg PO DAILY [facility] Last Admin: 11/06/19 09:26 Dose: 81 mg Documented by: Atorvastatin Calcium (Lipitor -) 40 mg PO HS [facility] Last Admin: 11/06/19 21:52 Dose: 40 mg Documented by: Ezetimibe (Zetia -) 10 mg PO DAILY [facility] Last Admin: 11/06/19 09:27 Dose: 10 mg Documented by: Furosemide (Lasix -) 20 mg PO DAILY [facility] Last Admin: 11/06/19 15:55 Dose: Not Given Documented by: Heparin Sodium (Porcine) (Heparin -) 5,000 unit SQ BID [facility] Last Admin: 11/06/19 21:52 Dose: 5,000 unit Documented by: Insulin Aspart (Novolog Vial Sliding Scale -) 1 vial SQ [facility]; Protocol Last Admin: 11/06/19 21:52 Dose: 4 units Documented by: Metformin HCl (Glucophage -) 500 mg PO BIDAC [facility] Last Admin: 11/06/19 16:43 Dose: 500 mg Documented by: Metoprolol Succinate (Toprol Xl -) 50 mg PO DAILY [facility] Last Admin: 11/06/19 09:27 Dose: 50 mg Documented by: Pantoprazole Sodium (Protonix -) 40 mg PO ACBK [facility] Last Admin: 11/06/19 06:57 Dose: 40 mg Documented by: Tamsulosin HCl (Flomax -) 0.4 mg PO DAILY@0830 [facility] Last Admin: 11/06/19 09:26 Dose: 0.4 mg Documented by: Valacyclovir HCl (Valtrex -) 1,000 mg PO BID [facility] Last Admin: 11/06/19 21:52 Dose: 1,000 mg Documented by: - Objective Vital Signs: Vital Signs Temperature 98.3 F 11/06/19 18:00 Pulse Rate 102 H 11/06/19 18:00 Respiratory Rate 20 11/06/19 18:00 Blood Pressure 146/92 11/06/19 18:00 O2 Sat by Pulse Oximetry (%) 94 L 11/06/19 18:00 Neck: Yes: WNL, Supple Cardiovascular: Yes: WNL, Regular Rate and Rhythm Respiratory: Yes: WNL, Regular, CTA Bilaterally Gastrointestinal: Yes: WNL, Normal Bowel Sounds, Soft, Abdomen, Obese Labs: CBC, BMP 11/06/19 07:05 11/06/19 07:05 INR, PTT INR 1.14 (0.83-1.09) H 11/04/19 16:20 Problem List - Problems (1) Hypoxia Assessment/Plan: ?Acute diastolic heart failure ?BUCKY Cont IV lasix Check echo Code(s): R09.02 - HYPOXEMIA (2) Shingles Assessment/Plan: Cont valtrex Code(s): B02.9 - ZOSTER WITHOUT COMPLICATIONS Qualifiers: Herpes zoster complications: without complications Qualified Code(s): B02.9 - Zoster without complications (3) HTN (hypertension) Assessment/Plan: BP fluctuating Cont metoprolol/asa Code(s): I10 - ESSENTIAL (PRIMARY) HYPERTENSION (4) HLD (hyperlipidemia) Assessment/Plan: Cont lipitor/zetia Code(s): E78.5 - HYPERLIPIDEMIA, UNSPECIFIED
[2019-11-07] MEDS: INSULIN SLIDING SCALE (NOVOLOG) 1 VIAL SQ SCH ×2 (06:16→10:58)
[2019-11-07] MEDS: PANTOPRAZOLE 40 MG TABLET PO SCH (06:16)
[2019-11-07] MEDS: metFORMIN HCL 500 MG TABLET (FP) PO SCH (06:16)
--- NOTE | 2019-11-07 07:56 | PN ---
Progress Note, Physician History of Present Illness: 79YOM with h/o HTN, HLD, DM, BPH, hip replacement in 05/2019, who p/w hypotension and hypoxia and b/l lung crackles noted in his oupatient clinic today while Dr. Eduardo was seeing him in f/u for his PCP Jose Araujo, with sxs of fatigue and SOB. He was recently diagnosed with right V1 distribution shingles and has been taking Valtrex. He denies any leg swelling, f/c/n/v/d/c, n/t/w focally. - Current Medication List Current Medications: Active Medications Acetaminophen (Tylenol -) 650 mg PO Q6H PRN PRN Reason: HEADACHE Last Admin: 11/07/19 06:16 Dose: 650 mg Documented by: Aspirin (Asa -) 81 mg PO DAILY [facility] Last Admin: 11/06/19 09:26 Dose: 81 mg Documented by: Atorvastatin Calcium (Lipitor -) 40 mg PO HS [facility] Last Admin: 11/06/19 21:52 Dose: 40 mg Documented by: Ezetimibe (Zetia -) 10 mg PO DAILY [facility] Last Admin: 11/06/19 09:27 Dose: 10 mg Documented by: Furosemide (Lasix -) 20 mg PO DAILY [facility] Last Admin: 11/06/19 15:55 Dose: Not Given Documented by: Heparin Sodium (Porcine) (Heparin -) 5,000 unit SQ BID [facility] Last Admin: 11/06/19 21:52 Dose: 5,000 unit Documented by: Insulin Aspart (Novolog Vial Sliding Scale -) 1 vial SQ [facility]; Protocol Last Admin: 11/07/19 06:16 Dose: 4 units Documented by: Metformin HCl (Glucophage -) 500 mg PO BIDAC [facility] Last Admin: 11/07/19 06:16 Dose: 500 mg Documented by: Metoprolol Succinate (Toprol Xl -) 50 mg PO DAILY [facility] Last Admin: 11/06/19 09:27 Dose: 50 mg Documented by: Pantoprazole Sodium (Protonix -) 40 mg PO ACBK [facility] Last Admin: 11/07/19 06:16 Dose: 40 mg Documented by: Tamsulosin HCl (Flomax -) 0.4 mg PO DAILY@0830 [facility] Last Admin: 11/06/19 09:26 Dose: 0.4 mg Documented by: Valacyclovir HCl (Valtrex -) 1,000 mg PO BID [facility] Last Admin: 11/06/19 21:52 Dose: 1,000 mg Documented by: - Objective Vital Signs: Vital Signs Temperature 98.2 F 11/07/19 06:00 Pulse Rate 90 11/07/19 06:00 Respiratory Rate 20 11/07/19 06:00 Blood Pressure 139/75 11/07/19 06:00 O2 Sat by Pulse Oximetry (%) 95 11/07/19 06:00 Eyes: Yes: WNL, Conjunctiva Clear, EOM Intact HENT: Yes: WNL, Atraumatic, Normocephalic Neck: Yes: WNL, Supple, Trachea Midline Cardiovascular: Yes: WNL, Regular Rate and Rhythm Respiratory: Yes: WNL, Regular, CTA Bilaterally Gastrointestinal: Yes: WNL, Normal Bowel Sounds Genitourinary: Yes: WNL Musculoskeletal: Yes: WNL Extremities: Yes: WNL Edema: No Integumentary: Yes: WNL Neurological: Yes: WNL, Alert, Oriented ...Motor Strength: WNL Psychiatric: Yes: WNL Labs: CBC, BMP 11/06/19 07:05 11/06/19 07:05 INR, PTT INR 1.14 (0.83-1.09) H 11/04/19 16:20 Problem List - Problems (1) Fatigue Code(s): R53.83 - OTHER FATIGUE Qualifiers: Fatigue type: unspecified Qualified Code(s): R53.83 - Other fatigue (2) Hypoxia Code(s): R09.02 - HYPOXEMIA (3) SOB (shortness of breath) Code(s): R06.02 - SHORTNESS OF BREATH (4) Shingles Code(s): B02.9 - ZOSTER WITHOUT COMPLICATIONS Qualifiers: Herpes zoster complications: without complications Qualified Code(s): B02.9 - Zoster without complications (5) Epigastric abdominal pain Code(s): R10.13 - EPIGASTRIC PAIN Assessment/Plan HTN, HLD, DM, BPH, hip replacement in 05/2019, who p/w hypotension and hypoxia and b/l lung crackles BNP nl CTA neg for PE Plan; Cont Lasix pulmonary rx dvt plx echo telemetry As per patient he has negative MIBI ST with dr. Parra within a year From cardiac point of view patient may be followed as the outpatient
[2019-11-07] MEDS ORDERED: valACYclovir HCL 500 MG TABLET (FP) ONE (08:35)
[2019-11-07] MEDS: FUROSEMIDE 20 MG TABLET (FP) PO SCH (09:02)
[2019-11-07] MEDS: EZETIMIBE 10 MG TABLET (FP) PO SCH (09:02)
[2019-11-07] MEDS: ASPIRIN 81 MG CHEWABLE TABLETS PO SCH (09:03)
[2019-11-07] MEDS: valACYclovir HCL 1000 MG TABLET PO SCH (09:03)
[2019-11-07] MEDS: TAMSULOSIN HCL 0.4 MG CAP PO SCH (09:03)
[2019-11-07] MEDS: HEPARIN NA (PORCINE) 5,000 UNITS/ML 1ML VIAL SQ SCH (09:04)
--- NOTE | 2019-11-07 10:18 | EKG ---
Test Reason : Blood Pressure : / mmHG Vent. Rate : 100 BPM Atrial Rate : 100 BPM P-R Int : 188 ms QRS Dur : 090 ms QT Int : 370 ms P-R-T Axes : 096 055 025 degrees QTc Int : 477 ms POOR DATA QUALITY, INTERPRETATION MAY BE ADVERSELY AFFECTED NORMAL SINUS RHYTHM ABNORMAL ECG WHEN COMPARED WITH ECG OF 27-AUG-2014 01:12, [place] INTERVAL HAS DECREASED Confirmed by Kristen Flores ([id number]) on 11/07/2019 10:18:09 AM Referred By: Confirmed By:Kristen Flores
--- NOTE | 2019-11-07 10:46 | ECHO ---
Name: LESLIEMARIYohanKRYSTEN [place]INA Exam:Adult Echocardiogram Study Date: 11/07/2019 09:12 AM Age: 79 yrs Reason For Study: hypotension Height: 69 in Weight: 223 lb BSA: 2.2 m2 MMode/2D Measurements & Calculations IVSd: 1.5 cm Ao root diam: 3.7 cm LVIDd: 3.1 cm LA dimension: 3.5 cm LVIDs: 2.0 cm LVPWd: 1.2 cm EDV(Teich): 38.4 ml LVOT diam: 2.1 cm ESV(Teich): 12.6 ml LAV (MOD-bp): 42.4 ml Doppler Measurements & Calculations MV E max arsenio: 67.0 cm/sec Ao V2 max: 115.4 cm/sec MV A max arsenio: 92.0 cm/sec Ao max P.3 mmHg MV E/A: 0.73 AI P1/2t: 426.5 msec MV dec time: 0.11 sec DOROTEO(V,D): 3.3 cm2 AI max arsenio: 156.1 cm/sec LV V1 max P.6 mmHg AI max P.9 mmHg LV V1 max: 107.8 cm/sec AI dec slope: 107.2 cm/sec2 PA V2 max: 105.9 cm/sec Med Peak E' Arsenio: 6.5 cm/sec PA max P.5 mmHg Med E/e': 10.3 Lat Peak E' Arsenio: 10.2 cm/sec Lat E/e': 6.6 PI Vmax: 165.6 cm/sec Procedure Study Quality: Fair. Left Ventricle The left ventricle is normal in size. There is mild concentric left ventricular hypertrophy. The left ventricular ejection fraction is normal. Ejection Fraction = 60-65%. The transmitral spectral Doppler flow pattern is suggestive of impaired LV relaxation. Right Ventricle The right ventricle is normal in size and function. Atria Normal left and right atrial size and function. Mitral Valve There is moderate mitral annular calcification. There is no mitral regurgitation noted. Tricuspid Valve The tricuspid valve is not well visualized, but is grossly normal. No tricuspid regurgitation. Aortic Valve There is moderate aortic sclerosis.;. No hemodynamically significant valvular aortic stenosis. Trace to mild aortic regurgitation. Pulmonic Valve The pulmonic valve is not well seen, but is grossly normal. Trace pulmonic valvular regurgitation. Great Vessels The aortic root is normal size. Pericardium/Pleura There is no pericardial effusion. Interpretation Summary L: Normal size,mild LVH with more basal septal prominence,noormal systolic function EF 60-65%,impaire d relaxation RV: Normal AV: Mildly calcified, trace to mild AR MV: calcified annulus. Kristen Flores 11/07/2019 10:45 AM
[2019-11-07 14:12] VITALS: BP 150/78; PULSE 99; TEMP 98.2
--- NOTE | 2019-11-07 14:56 | PN ---
Progress Note (short form) - Note Progress Note: Overall feels better. Less short of breath. Qualified for home O2. Desaturation to 87%. Intake & Output 11/04/19 11/05/19 11/06/19 11/07/19 23:59 23:59 23:59 23:59 Intake Total 300 1287 1106 100 Output Total 520 900 Balance 300 1287 586 -800 Weight 223 lb 9.6 oz Last Vital Signs Temp Pulse Resp BP Pulse Ox 98.2 F 99 H 20 150/78 99 11/07/19 13:56 11/07/19 13:56 11/07/19 13:56 11/07/19 13:56 11/07/19 13:56 Active Medications Acetaminophen (Tylenol -) 650 mg PO Q6H PRN PRN Reason: HEADACHE Last Admin: 11/07/19 06:16 Dose: 650 mg Documented by: Aspirin (Asa -) 81 mg PO DAILY [facility] Last Admin: 11/07/19 09:03 Dose: 81 mg Documented by: Atorvastatin Calcium (Lipitor -) 40 mg PO HS [facility] Last Admin: 11/06/19 21:52 Dose: 40 mg Documented by: Ezetimibe (Zetia -) 10 mg PO DAILY [facility] Last Admin: 11/07/19 09:02 Dose: 10 mg Documented by: Furosemide (Lasix -) 20 mg PO DAILY [facility] Last Admin: 11/07/19 09:02 Dose: 20 mg Documented by: Heparin Sodium (Porcine) (Heparin -) 5,000 unit SQ BID [facility] Last Admin: 11/07/19 09:04 Dose: 5,000 unit Documented by: Insulin Aspart (Novolog Vial Sliding Scale -) 1 vial SQ [facility]; Protocol Last Admin: 11/07/19 10:58 Dose: 6 units Documented by: Metformin HCl (Glucophage -) 500 mg PO BIDAC [facility] Last Admin: 11/07/19 06:16 Dose: 500 mg Documented by: Metoprolol Succinate (Toprol Xl -) 50 mg PO DAILY [facility] Last Admin: 11/07/19 09:03 Dose: 50 mg Documented by: Pantoprazole Sodium (Protonix -) 40 mg PO ACBK [facility] Last Admin: 11/07/19 06:16 Dose: 40 mg Documented by: Tamsulosin HCl (Flomax -) 0.4 mg PO DAILY@0830 [facility] Last Admin: 11/07/19 09:03 Dose: 0.4 mg Documented by: Valacyclovir HCl (Valtrex -) 1,000 mg PO BID [facility] Last Admin: 11/07/19 09:03 Dose: 1,000 mg Documented by: Gen: NAD at rest Heart: RRR Lung: basilar rales Abd: soft, nontender Ext: no edema Laboratory Results - last 24 hr 11/06/19 11/07/19 11/07/19 16:41 06:13 10:57 POC Glucometer 298 202 256 A/P Suspect Acute Diastolic Heart Failure Pleural Effusions Atelectasis Hypoxia from above HTN DM Hyperlipidemia - lasix - monitor urine output, creatinine - daily weights - O2 to keep SpO2 >90% - DVT prophylaxis - Will need home O2 Dr Quiroga
--- NOTE | 2019-11-10 14:50 | EKG ---
Test Reason : Blood Pressure : / mmHG Vent. Rate : 109 BPM Atrial Rate : 109 BPM P-R Int : 194 ms QRS Dur : 096 ms QT Int : 350 ms P-R-T Axes : 075 066 016 degrees QTc Int : 471 ms SINUS TACHYCARDIA OTHERWISE NORMAL ECG WHEN COMPARED WITH ECG OF 04-NOV-2019 15:21, NO SIGNIFICANT CHANGE WAS FOUND Confirmed by MARIE HDZ MD ([id number]) on 11/10/2019 2:50:18 PM Referred By: Confirmed By:MARIE HDZ MD
--- NOTE | 2019-11-16 23:37 | DS ---
Physical Examination Vital Signs: Vital Signs Temperature 98.2 F 11/07/19 13:56 Pulse Rate 99 H 11/07/19 13:56 Respiratory Rate 20 11/07/19 13:56 Blood Pressure 150/78 11/07/19 13:56 O2 Sat by Pulse Oximetry (%) 99 11/07/19 13:56 Labs: CBC, BMP 11/06/19 07:05 11/06/19 07:05 Discharge Summary Problems reviewed: Yes Reason For Visit: FATIGUE SOB HERPES ZOSTER HYPOXIA Acute respiratory Failure w/ hypoxia Acute diastolic Heart failure HTN HLD Diabetes Pleural effusion Hospital Course: 79 yo male with h/o HTN, DM, hyperlipidemia, who was sent from his PMD for generalized weakness and hypoxia. Pt was also on treatment for recently dx'ed shingles on his scalp for wc he is taking valcyovir. In ER pt found to be hypoxic and pt treated for acute respiratory failure wc resolved. Pt had CT scan chest wc was negative for PE but showed pleural effusions. Pt was admitted to tele and followed by pulmonayr/cardio. pt was treated for acute diastolic heart failure w/d IV lasix. Pt improved and was discharged Condition: Good - Instructions Diet, Activity, Other Instructions: 2 gram sodium and diabetic diet See Dr Jose Araujo in 1 week Referrals: Jose Araujo MD [Primary Care Provider] - Disposition: HOME - Home Medications Comprehensive Discharge Medication List: Ambulatory Orders Acyclovir 5 gm TP DAILY 11/04/19 Alfuzosin HCl [Uroxatral] 10 mg PO DAILY 11/04/19 Aspirin [ASA -] 81 mg PO DAILY 11/04/19 Atorvastatin Ca [Lipitor] 40 mg PO HS 11/04/19 Empagliflozin [Jardiance] 10 mg PO DAILY 11/04/19 Ezetimibe [Zetia] 10 mg PO DAILY 11/04/19 Lidocaine 5% Patch [Lidoderm -] 1 patch TP DAILY 11/04/19 Metformin HCl [Glucophage] 500 mg PO BID 11/04/19 Metoprolol Succinate 50 mg PO DAILY 11/04/19 Pantoprazole Sodium [Protonix] 40 mg PO DAILY 11/04/19 Pregabalin [Lyrica -] 50 mg PO BID 11/04/19 Sildenafil Citrate [Viagra] 100 mg PO DAILY 11/04/19 Simvastatin 40 mg PO DAILY 11/04/19 Tamsulosin HCl 0.4 mg PO DAILY 11/04/19 Valacyclovir HCl [Valtrex] 1,000 mg PO BID 11/04/19 Vitamin E 400 unit PO DAILY 11/04/19 Furosemide [Lasix -] 20 mg PO DAILY #30 tablet 11/07/19
== END 2019-11-07 15:14 | disposition home or self-care (01) | DRG 291 ==
LOC: JER 14:04 → JERBED 17:05 → J4S 20:09
PROVIDERS: ADMIT Internal Medicine; ATTEND Internal Medicine
DX: I11.0 Hypertensive heart disease with heart failure (principal); I50.31 Acute diastolic (congestive) heart failure; J96.01 Acute respiratory failure with hypoxia; J98.11 Atelectasis; E78.5 Hyperlipidemia, unspecified; N40.0 Benign prostatic hyperplasia without lower urinary tract symptoms; I25.10 Atherosclerotic heart disease of native coronary artery without angina pectoris; I95.9 Hypotension, unspecified; R73.03 Prediabetes; B02.9 Zoster without complications; R10.13 Epigastric pain; R53.83 Other fatigue; E66.9 Obesity, unspecified; Z68.33 Body mass index [BMI] 33.0-33.9, adult; Z95.1 Presence of aortocoronary bypass graft; Z96.649 Presence of unspecified artificial hip joint
CPT/HCPCS: 36415; 70450-TC; 71045-TC-FY; 71275-TC; 80053; 81003; 82550; 82728; 82962; 83615; 83880; 84443; 84484; 85025; 85610; 85730; 93005; 93010; 93306-TC; 94761; 99285-25; J1644; Q9967; U0003